=== PATIENT | female | born 2000 | race Caucasian/White ===

== ENCOUNTER 2021-06-15 20:04 | Inpatient (IN) ==
[~2021-06-15 20:04] MED LIST: *HR* Nalbuphine 10 MG/ML AMPUL IV PRN; Famotidine 20 MG/2 ML VIAL IVP PRN; Metoclopramide 10 MG/2 ML VIAL IVP PRN; Naloxone 0.4 MG/ML INJ IVP PRN; Ondansetron 4 MG/2 ML VIAL IVP PRN
[2021-06-15] MEDS ORDERED: EPHEDrine 50 MG/ML VIAL IVP PRN (20:28)
[2021-06-15] MEDS ORDERED: Epidural Premix (fent/bupiv) 110 ML EP SCH (20:30)
[2021-06-15 20:43] LABS: Basophils % 0.1 %; Eosinophils # 0.1 K/mcL (0.0-0.6); Eosinophils % 0.4 %; Hematocrit 35.6 % (35.3-44.9); Hemoglobin 11.5 g/dL (11.5-15.4); Immature Granulocytes % 0.8 % (0-4); Lymphocytes # 1.5 K/mcL (0.6-4.6); Mean Corpuscular HGB Conc 32.3 g/dL (31.6-35.5); Mean Corpuscular Hemoglobin 31.1 pg (28.0-33.3); Mean Corpuscular Volume 96.2 fL (83.0-100.0); Mean Platelet Volume 11.2 fL (9.4-12.4); Monocytes % 6.5 %; Neutrophils # 11.9 K/mcL (1.6-8.9); Platelet Count 218 K/mcL (140-400); Red Cell Distribution Width 13.2 % (11.5-14.5); Segmented Neutrophils % 82.2 %; White Blood Count 14.6 K/mcL (4.3-11.1)
[2021-06-15 20:52] LABS: Amphetamine Screen,Urine Negative ng/mL (Cutoff=1000); Barbiturate Screen,Urine Negative ng/mL (Cutoff=200); Benzodiazepines Screen,Urine Negative ng/mL (Cutoff=200); Cannabinoid Screen,Urine Negative ng/mL (Cutoff = 50); Cocaine Screen,Urine Negative ng/mL (Cutoff= 300); Opiate Screen,Urine Negative ng/mL (Cutoff=300); Phencyclidine Screen,Urine Negative ng/mL (Cutoff=25)
[2021-06-15] MEDS: Ringers Solution, Lactated 1,000 ML IVC SCH ×2 (21:40→22:27)
[2021-06-15] MEDS ORDERED: Oxytocin 30 UNIT/503 ML BAG IVC SCH (21:45)
[2021-06-15 22:03] LABS: Influenza A PCR Negative (Negative); Influenza B PCR Negative (Negative); Resp. Syncytial Virus PCR Negative (Negative); SARS-CoV-2 by PCR (In House) Negative (Negative)
[2021-06-16] MEDS ORDERED: Lanolin 7 G OINT...G. TP PRN (04:27)
[2021-06-16] MEDS ORDERED: *HR* OxyCODONE Immed Rel 5 MG TABLET PO PRN (04:27)
[2021-06-16] MEDS ORDERED: Ondansetron ODT 4 MG TAB.RAPDIS SL PRN (04:27)
[2021-06-16] MEDS ORDERED: Benzocaine/Menthol 56 GM AEROSOL SPRAY TP PRN (04:27)
[2021-06-16] MEDS ORDERED: Oxytocin 30 UNIT/503 ML BAG IVC SCH (04:27)
[2021-06-16] MEDS: Ibuprofen 600 MG TABLET PO SCH ×3 (04:36→22:29)
[2021-06-16] MEDS: Prenatal Vit/FA 1 EACH TABLET PO SCH (09:49)
[2021-06-16] MEDS: Acetaminophen 325 MG TABLET PO SCH ×2 (09:50→19:21)
[2021-06-16 21:07] VITALS: TEMP 98; O2SAT 99
[2021-06-17 08:02] VITALS: BP 130/74; PULSE 88
[2021-06-17] MEDS: Prenatal Vit/FA 1 EACH TABLET PO SCH (09:19)
[2021-06-17] MEDS: Acetaminophen 325 MG TABLET PO SCH (09:20)
[2021-06-17] MEDS: Ibuprofen 600 MG TABLET PO SCH (09:20)
== END 2021-06-17 12:19 | disposition home or self-care (01) | DRG 807 ==
LOC: 1NENULAB → 1NENUOBS 06-16 05:02
PROVIDERS: ADMIT Advanced Practice Midwife; ATTEND Advanced Practice Midwife